=== PATIENT | female | born 2005 | race Two or more races ===

== ENCOUNTER 2023-10-31 22:56 | Emergency (ER) | payer OTHER ==
[~2023-10-31] VITALS: Ht 160 cm; Wt 78.0 kg
[2023-11-01 02:07] LABS: HEMATOCRIT 34.4 % (36.0-45.00); HEMOGLOBIN 11.3 g/dL (12.0-15.00); MEAN CELL VOLUME 80.5 fL (80.00-100.00); MEAN CORPUSCULAR HEMOGLOBIN 26.5 pg (27.00-32.0); MEAN CORPUSCULAR HGB CONC 32.9 g/dl (32.0-36.0); PLATELET COUNT 250 K/uL (150-450); RED BLOOD COUNT 4.28 M/uL (4.00-6.00); RED CELL DISTRIBUTION WIDTH 14.8 % (11.5-14.5)
[2023-11-01] MEDS ORDERED: CEPHALEXIN500 MG PO (02:38)
[2023-11-01] MEDS ORDERED: KETO10TA2 PO (02:38)
== END 2023-11-01 03:01 ==
LOC: EMR PED 22:56 → ER 22:56 → EMR PED 23:49
PROVIDERS: General Practice
DX: L08.9 Local infection of the skin and subcutaneous tissue, unspecified (principal)